=== PATIENT | male | born 1955 | race Caucasian/White ===

== ENCOUNTER 2018-11-29 18:22 | Inpatient (IN) | payer SELFPAY ==
[2018-11-29] MEDS ORDERED: HumaLOG 300 UNITS/3 ML VIAL SC PRN (21:53)
[2018-11-29] MEDS ORDERED: Guaifenesin DM 100-10/5 ML UDCUP PO PRN (21:53)
[2018-11-29] MEDS ORDERED: Ondansetron ODT 4 MG TAB PO PRN (21:53)
[2018-11-29] MEDS ORDERED: Dextrose 50% Abboject 50 ML SYRINGE SLOW IVP PRN (21:53)
[2018-11-29] MEDS ORDERED: Bisacodyl 10 MG SUPP PR PRN (21:53)
[2018-11-29] MEDS ORDERED: Ondansetron PF 4 MG/2 ML Vial IVP PRN (21:53)
[2018-11-29] MEDS ORDERED: Dextrose 5% in Water 1,000 ML IV PRN (21:53)
[2018-11-29] MEDS ORDERED: Acetaminophen 325 MG TAB PO PRN (21:53)
--- NOTE | 2018-11-29 22:28 | HP ---
PRIMARY CARE PHYSICIAN: [facility] Call admission. REASON FOR ADMISSION: Transferred from [facility] for hepatic encephalopathy. HISTORY OF PRESENT ILLNESS: A 63-year-old male who was initially evaluated at [facility] for altered mental status. The patient was traveling from [place]. He was not taking his medication as prescribed. He has underlying nonalcoholic steatohepatitis-induced cirrhosis. He was talking irrelevantly. He was confused. He did not have any motor weakness. He did not have any fever or chills. He was evaluated at [facility], where he had CT brain and chest x-ray was normal. Routine blood test was also unremarkable other than ammonia was significantly high. The patient's was present at bedside, who provided history. The patient was not able to provide any good history. At [facility], patient was given lactulose. PAST MEDICAL HISTORY: Nonalcoholic cirrhosis of liver, diabetes type 2, obesity. PAST SURGICAL HISTORY: Reviewed and negative. PAST PSYCHIATRIC HISTORY: Reviewed and negative. SOCIAL HISTORY: The patient is , lives at home with family. No history of tobacco, alcohol, or illicit drug abuse. FAMILY HISTORY: No family history of coronary artery disease, stroke, or cancer. ALLERGIES: NO KNOWN DRUG ALLERGIES. CURRENT HOME MEDICATION: 1. Glipizide 5 mg p.o. b.i.d. 2. Lantus insulin, variable dose. 3. Lisinopril 10 mg daily. 4. Metformin 1000 mg b.i.d. 5. Metoprolol 25 mg b.i.d. 6. Omeprazole 20 mg p.o. daily. 7. ProAir inhaler q.6 hourly p.r.n. 8. Rifaximin 550 mg b.i.d. 9. Januvia 100 mg daily. 10. Hygroton 25 mg daily. 11. Benadryl p.r.n. basis. 12. Lactulose as needed. EMERGENCY ROOM COURSE: The patient was given lactulose. PHYSICAL EXAMINATION: VITAL SIGNS: Currently, blood pressure 143/78, pulse 68, respiratory rate 18, temperature 98.5, saturation 100% on room air, weight 117.9 kg. GENERAL: The patient is currently confused, no obvious acute distress. HEAD: Normocephalic, atraumatic. Eyes; pupils round, reactive to light. Extraocular muscle intact. ENT: Oropharynx within normal limits. LUNGS: Clear without any rhonchi or rales. CARDIAC: S1, S2 regular. No murmur. ABDOMEN: Soft, obesity present. No organomegaly. No mass. No peritoneal sign. BACK: Back examination unremarkable. No CVA tenderness. EXTREMITIES: Upper extremities, passive movement of all joints are normal. Bilateral lower extremity pitting edema noted. NEUROLOGIC: Asterixis present, but no focal neurological deficit. SKIN: No skin rash. REVIEW OF SYSTEMS: CONSTITUTIONAL: Negative for weight loss or gain, ability to conduct usual activities. SKIN: Negative for rash, itching. EYES: Negative for double vision, pain. ENT/MOUTH: Negative for nose bleeding, neck stiffness, pain, tenderness. CARDIOVASCULAR: Negative for palpitations, dyspnea on exertion, orthopnea. RESPIRATORY: Negative for shortness of breath, wheezing, cough, hemoptysis, fever or night sweats. GASTROINTESTINAL: Negative for poor appetite, abdominal pain, heartburn, nausea, vomiting, constipation, or diarrhea. GENITOURINARY: Negative for urgency, frequency, dysuria, nocturia. MUSCULOSKELETAL: Negative for pain, swelling. NEUROLOGIC/PSYCHIATRIC: Negative for anxiety, depression. ALLERGY/IMMUNOLOGIC: Negative for skin rash, bleeding tendency. All above-mentioned review of system is not reliable, because of altered mental status. IMAGIN. EKG showing normal sinus rhythm, nonspecific ST-T changes. 2. CT brain based on my review, no acute intracranial process. 3. Chest x-ray based on my review no acute cardiopulmonary process. SIGNIFICANT LABORATORY DATA: CBC; WBC 3.1, hemoglobin 12.0, platelet 42. BMP: Sodium 139, potassium 3.3, chloride 105, carbon dioxide 22, BUN 14, creatinine 0.75, glucose 181, calcium 8.7, bilirubin 2.9, AST 43, ALT 43, alkaline phosphatase 83, albumin 3.0, lipase 48, ammonia 103. Troponin 0.016. Urinalysis, leukocyte esterase trace. Urine drug screen negative. Serum drug screen negative. ASSESSMENT AND PLAN: 1. Acute hepatic encephalopathy, likely due to noncompliance with the treatment. The patient will need rifaximin 550 mg p.o. b.i.d. and lactulose 20 g p.o. q.i.d. and we will repeat ammonia level tomorrow. 2. Pancytopenia, likely due to underlying cirrhosis of liver. We will repeat CBC tomorrow. We will avoid Lovenox, because of low platelet count. 3. Hypokalemia. We will replace potassium chloride 40 mEq p.o. one time dose and we will repeat magnesium and phosphorus level tomorrow. 4. Abnormal liver function tests related with underlying cirrhosis of liver. 5. Asymptomatic bacteriuria. We will send urine culture and will defer antibiotic therapy until culture result is positive. 6. Diabetes type 2. We will verify his home medication and resume while in hospital. 7. Morbid obesity, dietary education given. 8. Abdominal distention. The patient's is concerned about abdominal distention. I am suspecting may be related with obesity, but we will do ultrasound abdomen to rule out any ascites. 9. Hypertension. We will continue patient's home medication after verification of his home dosage. 10. Deep venous thrombosis prophylaxis, sequential compression devices boots. Gastrointestinal prophylaxis, Pepcid 20 mg p.o. b.i.d. CODE STATUS: The patient is full code. The patient's is surrogate decision maker. DISPOSITION PLAN: Based on clinical course, we are expecting the patient's stay in hospital more than 2 midnights. Plan of care discussed with the patient and his at bedside. He will need PT/OT while in the hospital as well. Job ID: [id number]
[2018-11-29] MEDS ORDERED: Potassium Chloride 20 MEQ TAB PO SCH (22:30)
[2018-11-29 22:52] VITALS: BMI 31.5
[2018-11-30] MEDS ORDERED: PROVENTIL INHALER 6.7 G (200 INHALATIONS) INH PRN (03:09)
[2018-11-30 04:02] LABS: INR-International Normal Ratio 1.3; Prothrombin Time 16.6 SEC (12.0-14.7)
[2018-11-30 04:11] LABS: ALT (SGPT) 41 U/L (8-55); AST (SGOT) 44 U/L (5-34); Albumin 3.1 g/dL (3.4-4.8); Alkaline Phosphatase 79 U/L (40-150); Anion Gap 10 mmol/L (10-20); BUN (Urea Nitrogen) 12 mg/dL (8.4-25.7); Bilirubin, Total 3.2 mg/dL (0.2-1.2); Calc. Creatinine Clearance 161 mL/min (70-130); Calcium 9.1 mg/dL (7.8-10.44); Carbon Dioxide 24 mmol/L (23-31); Chloride 107 mmol/L (98-107); Estimated GFR-MDRD Greater than 90; Globulin 3.2 g/dL (2.4-3.5); Glucose 154 mg/dL (80-115); Magnesium 1.4 mg/dL (1.6-2.6); Phosphorus 2.9 mg/dL (2.3-4.7); Potassium 3.2 mmol/L (3.5-5.1); Protein, Total 6.3 g/dL (5.8-8.1); Sodium 138 mmol/L (136-145)
[2018-11-30 05:07] LABS: #Eosinphils 0.1 thou/uL (0.0-0.7); #Lymphocytes 0.7 thou/uL (1.20-3.40); #Monocytes 0.3 thou/uL (0.11-0.59); #Neutrophils 1.3 thou/uL (1.40-6.50); %Basophils 0.4 % (0.0-1.0); %Eosinophils 4.5 % (0.0-10.0); %Lymphocytes 28.4 % (21.0-51.0); %Monocytes 11.7 % (0.0-10.0); Mean Corpuscular HGB CONC 34.5 g/dL (32.0-36.0); Mean Corpuscular Hemoglobin 33.8 pg (27.0-31.0); Mean Corpuscular Volume 97.9 fL (78.0-98.0); Platelet Count 48 thou/uL (130-400); Platelet Morphology Comment Appears Decreased; RBC Distribution Width 14.2 % (11.5-14.5); Red Blood Cell (RBC) Count 3.56 mill/uL (4.70-6.10); White Blood Cell (WBC) Count 2.4 thou/uL (4.8-10.8)
--- NOTE | 2018-11-30 07:07 | ULT ---
ULTRASOUND ABDOMEN COMPLETE: INDICATION: Abdominal distention. TECHNIQUE: Beauchamp-scale ultrasound evaluation of the liver, gallbladder, spleen, pancreas, common bile duct, kidne ys, abdominal aorta, and inferior vena cava (IVC). FINDINGS: There is a slight nodularity to the hepatic contour with coarsening of the echotexture. No focal hepa tic lesion. The spleen is enlarged, 16 cm in length. Moderate distention of the gallbladder without c holelithiasis or wall thickening. Common duct is normal. No acute renal pathology. Pancreas partially obscured from view by bowel content, limiting assessment. Imaged portions of the aorta and IVC are g rossly unremarkable. IMPRESSION: Findings to indicate cirrhotic morphology of the liver. There is also splenomegaly, which may be rela cat to sequelae from portal hypertension. Correlate clinically. POS: PALOMO
[2018-11-30] MEDS: Famotidine 20 MG TAB PO SCH ×2 (08:29→21:12)
[2018-11-30] MEDS: Rifaximin 550 MG TAB PO SCH ×2 (08:29→21:12)
[2018-11-30] MEDS: Lisinopril 20 MG TAB PO SCH (08:29)
[2018-11-30] MEDS: metFORMIN 500 MG TAB PO SCH ×2 (08:29→17:06)
[2018-11-30] MEDS: Multivit, Therapeutic 1 TAB PO SCH (08:31)
[2018-11-30] MEDS: glipiZIDE 5 MG TAB PO SCH ×2 (08:31→17:06)
[2018-11-30] MEDS: Alogliptin 25 MG TAB PO SCH (08:31)
[2018-11-30] MEDS: Vitamin E 400 UNITS CAP PO SCH (09:19)
[2018-11-30] MEDS: Chlorthalidone 25 MG TAB PO SCH (09:19)
[2018-11-30] MEDS: HumaLOG 300 UNITS/3 ML VIAL SC PRN (12:11)
--- NOTE | 2018-11-30 15:20 | PDOC.PN ---
- Subjective Encounter Start Date: 11/30/18 Encounter Start Time: 12:45 Subjective: pt up in bed no complains, slow to respond - Objective Resuscitation Status - Order Detail: 11/29/18 21:34 Resuscitation Status Routine Resuscitation Status: FULL: Full Resuscitation Vital Signs & Weight: Vital Signs (12 hours) Temp Pulse Resp BP BP BP Pulse Ox 11/30/18 12:11 96/62 11/30/18 11:00 98.2 F 65 18 91/53 L 97 11/30/18 08:30 98 11/30/18 08:29 122/78 11/30/18 07:32 97.7 F 60 20 104/63 98 11/30/18 04:00 98.4 F 61 20 102/52 L 99 Weight Weight 259 lb 1.6 oz I&O: 11/29/18 11/30/18 12/01/18 06:59 06:59 06:59 Intake Total 500 Balance 500 Result Diagrams: 11/30/18 03:42 11/30/18 03:43 Additional Labs: Accuchecks 11/30/18 11/30/18 11/29/18 11:08 05:04 22:55 POC Glucose 213 H 136 H 231 H Phys Exam - Physical Examination Neck: no nodes, no JVD, supple, full ROM Respiratory: no wheezing, no rales, no rhonchi, wheezing present, clear to auscultation bilateral Cardiovascular: RRR, no significant murmur, no rub, gallop, irregular Gastrointestinal: soft, non-tender, no distention, positive bowel sounds Dx/Plan (1) Acute metabolic encephalopathy Code(s): G93.41 - METABOLIC ENCEPHALOPATHY Status: Acute (2) Non-alcoholic cirrhosis Status: Acute - Plan pt has no abdomen pain -: His RUQ ultrasound did indicated liver cirrhosis -: will check labs in am. His medication restarted -: will continue to monitor * . Review of Systems - Review of Systems Respiratory: negative: Cough, Dry, Shortness of Breath, Hemoptysis, SOB with Excertion, Pleuritic Pain, Sputum, Wheezing Cardiovascular: negative: chest pain, palpitations, orthopnea, paroxysmal nocturnal dyspnea, edema, light headedness, other Gastrointestinal: negative: Nausea, Vomiting, Abdominal Pain, Diarrhea, Constipation, Melena, Hematochezia, Other - Medications/Allergies Allergies/Adverse Reactions: Allergies Allergy/AdvReac Type Severity Reaction Status Date / Time No Known Drug Allergies Allergy Verified 11/30/18 03:00 Medications: Current Medications Acetaminophen (Tylenol) 650 mg PO Q4H PRN PRN Reason: Headache/Fever/Mild Pain (1-3) Albuterol Sulfate (Proventil Hfa) 2 puff INH Q4HR PRN PRN Reason: Wheezing Albuterol/Ipratropium (Duoneb) 3 ml NEB [id number] PRN PRN Reason: SOB &/or Wheezing Alogliptin Benzoate (Alogliptin) 25 mg PO DAILY [facility] Last Admin: 11/30/18 08:31 Dose: 25 mg Bisacodyl (Dulcolax) 10 mg OR DAILYPRN PRN PRN Reason: Constipation Chlorthalidone (Hygroton) 25 mg PO DAILY [facility] Last Admin: 11/30/18 09:19 Dose: 25 mg Dextrose/Water (Dextrose 50%) 25 gm SLOW IVP PRN PRN PRN Reason: Hypoglycemia Famotidine (Pepcid) 20 mg PO BID [facility] Last Admin: 11/30/18 08:29 Dose: 20 mg Glipizide (Glucotrol) 10 mg PO BID-AC [facility] Last Admin: 11/30/18 08:31 Dose: 10 mg Glucagon (Glucagon) 1 mg IM PRN PRN PRN Reason: Hypoglycemia Guaifenesin/Dextromethorphan (Robitussin Dm) 15 ml PO Q4H PRN PRN Reason: Cough Dextrose/Water (D5w) 1,000 mls @ 0 mls/hr IV .Q0M PRN PRN Reason: Hypoglycemia Insulin Glargine 70 units/ (Miscellaneous Medication) 0.7 mls @ 0 mls/hr SC HS JAYLEN Magnesium Sulfate 2 gm/ Device 50 mls @ 50 mls/hr IVPB ONE [facility] Potassium Chloride 10 meq/ (Device) 100 mls @ 100 mls/hr IVPB NOW [facility] Insulin Human Lispro (Humalog) 0 units SC .MODERATE SLIDING SC PRN PRN Reason: Moderate Correctional Scale Last Admin: 11/30/18 12:11 Dose: 4 unit Insulin Human Lispro (Humalog) 0 units SC .BEDTIME SLIDING SC PRN PRN Reason: Bedtime Correctional Scale Lactulose (Lactulose) 20 gm PO QID [facility] Last Admin: 11/30/18 12:11 Dose: 20 gm Lisinopril (Zestril) 20 mg PO DAILY [facility] Last Admin: 11/30/18 08:29 Dose: 20 mg Metformin HCl (Glucophage) 1,000 mg PO BID-[facility] Last Admin: 11/30/18 08:29 Dose: 1,000 mg Metoprolol Succinate (Toprol Xl) 25 mg PO DAILY [facility] Last Admin: 11/30/18 08:29 Dose: 25 mg Multivitamins (Theragran) 1 tab PO DAILY [facility] Last Admin: 11/30/18 08:31 Dose: 1 tab Ondansetron HCl (Zofran Odt) 4 mg PO Q6H PRN PRN Reason: Nausea/Vomiting Ondansetron HCl (Zofran) 4 mg IVP Q6H PRN PRN Reason: Nausea/Vomiting Pneumococcal Polyvalent Vaccine (Pneumovax 23) 0.5 ml IM .ONCE ONE Stop: 11/30/18 21:01 Potassium Chloride (Potassium Chloride) 10 meq IVPB ONE [facility] Rifaximin (Xifaxan) 550 mg PO BID [facility] Last Admin: 11/30/18 08:29 Dose: 550 mg Vitamin E (Vitamin E) 800 units PO DAILY [facility] Last Admin: 11/30/18 09:19 Dose: 800 units
[2018-11-30] MEDS ORDERED: Potassium Chloride 10 MEQ in Premix Bag 1 BAG IVPB SCH (16:00)
[2018-11-30] MEDS ORDERED: Magnesium 2 GM/50 ML 2 GM in Premix Bag 1 BAG IVPB SCH (16:00)
[2018-11-30] MEDS: Potassium Chloride 10 MEQ in Premix Bag 1 BAG IVPB SCH ×2 (17:05→21:13)
[2018-11-30] MEDS ORDERED: Non-Formulary Item 1 EACH (Insulin Glargine,Hum.Rec.Anlog [Lantus Solostar] 70 UNIT) SQ SCH (21:00)
[2018-11-30] MEDS: Insulin Glargine 70 UNITS in Pre-Filled Syringe 1 EACH SC SCH (21:13)
[2018-12-01 05:52] LABS: #Eosinphils 0.2 thou/uL (0.0-0.7); #Lymphocytes 0.8 thou/uL (1.20-3.40); #Monocytes 0.3 thou/uL (0.11-0.59); #Neutrophils 1.4 thou/uL (1.40-6.50); %Basophils 0.8 % (0.0-1.0); %Lymphocytes 28.3 % (21.0-51.0); %Monocytes 10.7 % (0.0-10.0); %Neutrophils 54.1 % (42.0-75.0); Hemoglobin 12.1 g/dL (14.0-18.0); Mean Corpuscular HGB CONC 35.4 g/dL (32.0-36.0); Mean Corpuscular Hemoglobin 34.4 pg (27.0-31.0); Mean Corpuscular Volume 97.1 fL (78.0-98.0); Mean Platelet Volume 9.8 fL (7.4-10.4); Platelet Count 43 thou/uL (130-400); Red Blood Cell (RBC) Count 3.51 mill/uL (4.70-6.10); White Blood Cell (WBC) Count 2.6 thou/uL (4.8-10.8)
[2018-12-01 06:08] LABS: ALT (SGPT) 38 U/L (8-55); AST (SGOT) 45 U/L (5-34); Alkaline Phosphatase 87 U/L (40-150); Anion Gap 12 mmol/L (10-20); BUN (Urea Nitrogen) 13 mg/dL (8.4-25.7); Bilirubin, Total 2.1 mg/dL (0.2-1.2); Calc. Creatinine Clearance 168 mL/min (70-130); Calcium 8.6 mg/dL (7.8-10.44); Carbon Dioxide 22 mmol/L (23-31); Chloride 105 mmol/L (98-107); Estimated GFR-MDRD Greater than 90; Globulin 3.2 g/dL (2.4-3.5); Glucose 175 mg/dL (80-115); Potassium 3.3 mmol/L (3.5-5.1); Protein, Total 6.2 g/dL (5.8-8.1); Sodium 136 mmol/L (136-145)
[2018-12-01] MEDS: Vitamin E 400 UNITS CAP PO SCH (08:38)
[2018-12-01] MEDS: Multivit, Therapeutic 1 TAB PO SCH (08:38)
[2018-12-01] MEDS: glipiZIDE 5 MG TAB PO SCH ×2 (08:38→15:52)
[2018-12-01] MEDS: Alogliptin 25 MG TAB PO SCH (08:38)
[2018-12-01] MEDS: metFORMIN 500 MG TAB PO SCH ×2 (08:39→17:34)
[2018-12-01] MEDS: Famotidine 20 MG TAB PO SCH ×2 (08:39→21:39)
[2018-12-01] MEDS: Lisinopril 20 MG TAB PO SCH (08:39)
[2018-12-01] MEDS: Rifaximin 550 MG TAB PO SCH ×2 (08:39→21:39)
[2018-12-01] MEDS: Chlorthalidone 25 MG TAB PO SCH (08:40)
[2018-12-01] MEDS: HumaLOG 300 UNITS/3 ML VIAL SC PRN ×2 (12:25→17:34)
[2018-12-01] MEDS: Potassium Chloride 20 MEQ TAB PO SCH ×2 (15:52→17:34)
--- NOTE | 2018-12-01 16:03 | PDOC.PN ---
- Subjective Encounter Start Date: 12/01/18 Encounter Start Time: 11:55 Subjective: pt up in bed eating, is having diarrhea - Objective Resuscitation Status - Order Detail: 11/29/18 21:34 Resuscitation Status Routine Resuscitation Status: FULL: Full Resuscitation Vital Signs & Weight: Vital Signs (12 hours) Temp Pulse Resp BP BP Pulse Ox 12/01/18 08:39 113/73 12/01/18 08:30 98 12/01/18 07:26 98.1 F 61 18 113/73 98 Weight Weight 259 lb 1.6 oz I&O: 11/30/18 12/01/18 12/02/18 06:59 06:59 06:59 Intake Total 500 970 Balance 500 970 Result Diagrams: 12/01/18 05:06 12/01/18 05:06 Additional Labs: Accuchecks 12/01/18 12/01/18 11/30/18 11:47 05:24 19:35 POC Glucose 234 H 174 H 144 H 11/30/18 16:32 POC Glucose 192 H Phys Exam - Physical Examination Neck: no nodes, no JVD, supple, full ROM Respiratory: no wheezing, no rales, no rhonchi, wheezing present, clear to auscultation bilateral Cardiovascular: RRR, no significant murmur, no rub, gallop, irregular Gastrointestinal: soft, non-tender, no distention, positive bowel sounds Dx/Plan (1) Acute metabolic encephalopathy Code(s): G93.41 - METABOLIC ENCEPHALOPATHY Status: Acute (2) Non-alcoholic cirrhosis Status: Acute - Plan pt's bili is trending down, will monitor for one more day -: if stable may discharge home. Diarrhea due to lactulose * . Review of Systems - Review of Systems Respiratory: negative: Cough, Dry, Shortness of Breath, Hemoptysis, SOB with Excertion, Pleuritic Pain, Sputum, Wheezing Cardiovascular: negative: chest pain, palpitations, orthopnea, paroxysmal nocturnal dyspnea, edema, light headedness, other Gastrointestinal: Diarrhea - Medications/Allergies Allergies/Adverse Reactions: Allergies Allergy/AdvReac Type Severity Reaction Status Date / Time No Known Drug Allergies Allergy Verified 11/30/18 03:00 Medications: Current Medications Acetaminophen (Tylenol) 650 mg PO Q4H PRN PRN Reason: Headache/Fever/Mild Pain (1-3) Albuterol Sulfate (Proventil Hfa) 2 puff INH Q4HR PRN PRN Reason: Wheezing Albuterol/Ipratropium (Duoneb) 3 ml NEB [id number] PRN PRN Reason: SOB &/or Wheezing Alogliptin Benzoate (Alogliptin) 25 mg PO DAILY [facility] Last Admin: 12/01/18 08:38 Dose: 25 mg Bisacodyl (Dulcolax) 10 mg OR DAILYPRN PRN PRN Reason: Constipation Chlorthalidone (Hygroton) 25 mg PO DAILY [facility] Last Admin: 12/01/18 08:40 Dose: 25 mg Dextrose/Water (Dextrose 50%) 25 gm SLOW IVP PRN PRN PRN Reason: Hypoglycemia Famotidine (Pepcid) 20 mg PO BID [facility] Last Admin: 12/01/18 08:39 Dose: 20 mg Glipizide (Glucotrol) 10 mg PO BID-[facility] Last Admin: 12/01/18 15:52 Dose: 10 mg Glucagon (Glucagon) 1 mg IM PRN PRN PRN Reason: Hypoglycemia Guaifenesin/Dextromethorphan (Robitussin Dm) 15 ml PO Q4H PRN PRN Reason: Cough Dextrose/Water (D5w) 1,000 mls @ 0 mls/hr IV .Q0M PRN PRN Reason: Hypoglycemia Insulin Glargine 70 units/ (Miscellaneous Medication) 0.7 mls @ 0 mls/hr SC [facility] Last Admin: 11/30/18 21:13 Dose: 0.7 mls Insulin Human Lispro (Humalog) 0 units SC .MODERATE SLIDING SC PRN PRN Reason: Moderate Correctional Scale Last Admin: 12/01/18 12:25 Dose: 4 unit Insulin Human Lispro (Humalog) 0 units SC .BEDTIME SLIDING SC PRN PRN Reason: Bedtime Correctional Scale Lactulose (Lactulose) 20 gm PO QID [facility] Last Admin: 12/01/18 12:25 Dose: 20 gm Lisinopril (Zestril) 20 mg PO DAILY [facility] Last Admin: 12/01/18 08:39 Dose: Not Given Metformin HCl (Glucophage) 1,000 mg PO BID-[facility] Last Admin: 12/01/18 08:39 Dose: 1,000 mg Metoprolol Succinate (Toprol Xl) 25 mg PO DAILY [facility] Last Admin: 12/01/18 08:39 Dose: 25 mg Multivitamins (Theragran) 1 tab PO DAILY [facility] Last Admin: 12/01/18 08:38 Dose: 1 tab Ondansetron HCl (Zofran Odt) 4 mg PO Q6H PRN PRN Reason: Nausea/Vomiting Ondansetron HCl (Zofran) 4 mg IVP Q6H PRN PRN Reason: Nausea/Vomiting Potassium Chloride (K-Dur) 40 meq PO 1430,1700 [facility] Stop: 12/01/18 17:01 Last Admin: 12/01/18 15:52 Dose: 40 meq Rifaximin (Xifaxan) 550 mg PO BID [facility] Last Admin: 12/01/18 08:39 Dose: 550 mg Vitamin E (Vitamin E) 800 units PO DAILY [facility] Last Admin: 12/01/18 08:38 Dose: 800 units
[2018-12-01] MEDS: Insulin Glargine 70 UNITS in Pre-Filled Syringe 1 EACH SC SCH (21:43)
[2018-12-02 05:51] LABS: ALT (SGPT) 43 U/L (8-55); AST (SGOT) 53 U/L (5-34); Albumin 3.3 g/dL (3.4-4.8); Alkaline Phosphatase 87 U/L (40-150); Anion Gap 12 mmol/L (10-20); BUN (Urea Nitrogen) 15 mg/dL (8.4-25.7); Bilirubin, Total 2.8 mg/dL (0.2-1.2); Calc. Creatinine Clearance 168 mL/min (70-130); Calcium 9.2 mg/dL (7.8-10.44); Carbon Dioxide 24 mmol/L (23-31); Chloride 104 mmol/L (98-107); Estimated GFR-MDRD Greater than 90; Globulin 3.6 g/dL (2.4-3.5); Glucose 100 mg/dL (80-115); Potassium 3.6 mmol/L (3.5-5.1); Protein, Total 6.9 g/dL (5.8-8.1); Sodium 136 mmol/L (136-145)
[2018-12-02] MEDS: Alogliptin 25 MG TAB PO SCH (08:31)
[2018-12-02] MEDS: Vitamin E 400 UNITS CAP PO SCH (08:31)
[2018-12-02] MEDS: glipiZIDE 5 MG TAB PO SCH (08:32)
[2018-12-02] MEDS: Chlorthalidone 25 MG TAB PO SCH (08:32)
[2018-12-02] MEDS: Lisinopril 20 MG TAB PO SCH (08:32)
[2018-12-02] MEDS: metFORMIN 500 MG TAB PO SCH (08:32)
[2018-12-02] MEDS: Rifaximin 550 MG TAB PO SCH (08:32)
[2018-12-02] MEDS: Famotidine 20 MG TAB PO SCH (08:32)
[2018-12-02] MEDS: Multivit, Therapeutic 1 TAB PO SCH (08:32)
[2018-12-02 09:19] LABS: #Eosinphils 0.2 thou/uL (0.0-0.7); #Lymphocytes 0.7 thou/uL (1.20-3.40); #Monocytes 0.3 thou/uL (0.11-0.59); #Neutrophils 1.6 thou/uL (1.40-6.50); %Basophils 0.9 % (0.0-1.0); %Eosinophils 5.8 % (0.0-10.0); %Lymphocytes 25.1 % (21.0-51.0); %Monocytes 9.5 % (0.0-10.0); %Neutrophils 58.7 % (42.0-75.0); Mean Corpuscular HGB CONC 34.9 g/dL (32.0-36.0); Mean Corpuscular Hemoglobin 33.8 pg (27.0-31.0); Mean Corpuscular Volume 97.1 fL (78.0-98.0); Mean Platelet Volume 9.1 fL (7.4-10.4); Platelet Count 47 thou/uL (130-400); RBC Distribution Width 14.1 % (11.5-14.5); Red Blood Cell (RBC) Count 3.84 mill/uL (4.70-6.10); White Blood Cell (WBC) Count 2.7 thou/uL (4.8-10.8)
[2018-12-02 09:39] LABS: ALT (SGPT) 42 U/L (8-55); AST (SGOT) 47 U/L (5-34); Albumin 3.4 g/dL (3.4-4.8); Alkaline Phosphatase 85 U/L (40-150); Anion Gap 11 mmol/L (10-20); BUN (Urea Nitrogen) 15 mg/dL (8.4-25.7); Bilirubin, Total 3.1 mg/dL (0.2-1.2); Calc. Creatinine Clearance 172 mL/min (70-130); Calcium 9.2 mg/dL (7.8-10.44); Carbon Dioxide 27 mmol/L (23-31); Chloride 103 mmol/L (98-107); Estimated GFR-MDRD Greater than 90; Globulin 3.6 g/dL (2.4-3.5); Glucose 112 mg/dL (80-115); Potassium 3.8 mmol/L (3.5-5.1); Sodium 137 mmol/L (136-145)
[2018-12-02 12:06] VITALS: BP 115/72; TEMP 98
[2018-12-02] MEDS: HumaLOG 300 UNITS/3 ML VIAL SC PRN (12:07)
--- NOTE | 2018-12-03 13:16 | DIS ---
DATE OF ADMISSION: 11/29/2018 DATE OF DISCHARGE: 12/02/2018 DISCHARGE DIAGNOSES: As of the following; 1. Acute metabolic encephalopathy, most likely secondary to his underlying liver disease. 2. Nonalcoholic cirrhosis. 3. Elevated bilirubin. HOSPITAL COURSE: The patient is a 63-year-old male, who initially was driving from [place] to [facility], who apparently ran out of his medications per the patient and per the history and physical and started to have generalized weakness and talking irrelevantly. The patient at this time was found to have a very high ammonia level. He was admitted to the hospital for further evaluation. The patient does have a history of nonalcoholic hepatic steatosis and was started on rifaximin and lactulose. The patient's mentation continued to improve. He was at baseline. I did speak with his . The did state that he does make jokes. However, she felt that he was at his baseline. The patient states that he felt better. He was oriented to where he was. Denied any pain and had been feeding and eating without any issues. The patient recommended to follow up with his primary next week. I did refill his prescriptions. MEDICATIONS: His home medications will be; 1. Insulin 70 units at bedtime. 2. Lactulose 30 mL q.p.m. 3. Metoprolol 25 mg daily. 4. Rifaximin 550 p.o. b.i.d. 5. Omeprazole 20 mg daily. 6. Januvia 100 mg daily. 7. Multivitamin one p.o. daily. 8. Vitamin E 2 caps daily. 9. Chlorthalidone 25 mg daily. 10. Glipizide 10 mg b.i.d. 11. Lisinopril 20 mg daily. LABORATORY DATA: The patient's renal function has been stable. He did have a mildly elevated bilirubin at 3.1. I am not sure what his baseline is. Since he has been in the hospital, it has been around 2.1 to 3.1. PHYSICAL EXAMINATION: VITAL SIGNS: Temperature of 98.0, heart rate of 63, respiratory rate 18, and oxygen saturation 99% on room air, and blood pressure 115/72. GENERAL: He is awake, alert, and oriented x3. Does not appear in any distress. CARDIOVASCULAR: S1 and S2 present. No murmurs, rubs, or gallops. ABDOMEN: Soft and nontender. Bowel sounds are present x2. DISPOSITION: Again, he will be discharged home. Follow up with his PCP next week. Job ID: [id number]
== END 2018-12-02 13:31 | disposition home or self-care (01) | DRG 432 ==
LOC: ERS 18:22 → T4-A 20:10
PROVIDERS: ADMIT Family Medicine; ATTEND Family Medicine
DX: K74.60 Unspecified cirrhosis of liver (principal); G93.41 Metabolic encephalopathy; D61.818 Other pancytopenia; E11.9 Type 2 diabetes mellitus without complications; K72.90 Hepatic failure, unspecified without coma; E87.6 Hypokalemia; R82.71 Bacteriuria; E66.01 Morbid (severe) obesity due to excess calories; I10 Essential (primary) hypertension; R19.7 Diarrhea, unspecified; T47.3X5A Adverse effect of saline and osmotic laxatives, initial encounter; Z79.4 Long term (current) use of insulin; Z91.14 Patient's other noncompliance with medication regimen; Z68.31 Body mass index [BMI] 31.0-31.9, adult
CPT/HCPCS: 36415; 36416; 76700; 80053; 82105; 82140; 83735; 84100; 85025; 85610; 90471; 90732; 99285; G0009; J1825; J3475; J3480